=== PATIENT | female | born 1945 | race Caucasian/White ===

== ENCOUNTER → 2023-10-04 09:50 | Outpatient (REF) | payer MEDICARE, OTHER, SELFPAY | LOC: RAD 09:50 | PROVIDERS: ATTENDING PHYSICIAN Family Medicine | DX: I83.813 Varicose veins of bilateral lower extremities with pain (principal) | CPT/HCPCS: 93970 ==

== ENCOUNTER → 2024-12-16 10:46 | Outpatient (REF) | payer MEDICARE, OTHER, SELFPAY | LOC: HWRAD 10:46 | PROVIDERS: ATTENDING PHYSICIAN Nurse Practitioner Family; FAMILY PHYSICIAN Family Medicine | DX: M85.80 Other specified disorders of bone density and structure, unspecified site (principal); M81.0 Age-related osteoporosis without current pathological fracture | CPT/HCPCS: 77080 ==